=== PATIENT | female | born 1985 | race American Indian/Alaskan Native ===

== ENCOUNTER 2017-05-09 04:51 | Emergency (ER) | payer OTHER ==
[2017-05-09] MEDS ORDERED: KEPPRA 1,000 MG/NS 0.75% 100ML 1,000 MG/100 ML BAG IV ONE (06:04)
[2017-05-09 06:39] LABS: Basophils # (Auto) 0.1 K/mm3 (0.0-0.1); Eosinophils # (Auto) 0.4 K/mm3 (0.0-0.4); Eosinophils % (Auto) 4.6 % (0.0-4.3); Hematocrit 40.1 % (30.3-42.9); Hemoglobin 12.9 gm/dl (10.1-14.3); Lymphocytes # (Auto) 2.7 K/mm3 (1.2-5.4); Lymphocytes % (Auto) 28.6 % (13.4-35.0); Mean Corpuscular HGB Conc 32 % (30-34); Mean Corpuscular Hemoglobin 28 pg (28-32); Mean Corpuscular Volume 88 fl (79-97); Monocytes # (Auto) 0.6 K/mm3 (0.0-0.8); Monocytes % (Auto) 6.3 % (0.0-7.3); Platelet Count 341 K/mm3 (140-440); Red Blood Count 4.59 M/mm3 (3.65-5.03); Red Cell Distribution Width 13.2 % (13.2-15.2)
--- NOTE | 2017-05-09 06:55 | Emergency Department Report ---
HPI - General Chief Complaint: Seizure Time Seen by Provider: 05/09/17 06:48 - HPI HPI: This is a 31 year-old female who presents to the emergency department via EMS from home after her mother found her to be unresponsive and have some questionable seizure-like activity. The patient does have a history of a brain tumor for which she had surgery at [facility] 3 months ago and was just discharged last week. The patient is usually verbal and expressive but since the incident this morning, around 3:57 AM, the patient has been unresponsive and not following commands. Mom says that she was told the tumor was found to be cancerous and she was supposed to meet with a physician this morning regarding a possible subsequent chemotherapy or radiation. Mom says that the unresponsive episode happened after the patient had a coughing fit. ED Past Medical Hx - Past Medical History Previous Medical History?: Yes Hx of Cancer: Yes (Brain tumor) Hx Seizures: Yes Additional medical history: Brain tumor - Surgical History Past Surgical History?: Yes Additional Surgical History: Removal of Brain tumor - Social History Smoking Status: Never Smoker Substance Use Type: None - Medications Home Medications: Home Medications Medication Instructions Recorded Confirmed Last Taken Type Amantadine 100 mg FEEDTUBE BID 05/09/17 05/09/17 Unknown History Keppra ORAL LIQ 20 ml FEEDTUBE Q12H 05/09/17 05/09/17 Unknown History Propranolol 10 mg FEEDTUBE Q8H 05/09/17 05/09/17 Unknown History Sennosides 2 tab FEEDTUBE BID 05/09/17 05/09/17 Unknown History ED Review of Systems ROS: Stated complaint: COUGH Other details as noted in HPI Comment: Unobtainable due to pts medical conditions Respiratory: cough Cardiovascular: syncope Neurological: confusion Physical Exam - Physical Exam Vital Signs: Vital Signs 05/09/17 05/09/17 05/09/17 05:15 05:30 05:34 Temperature 96.9 F L Pulse Rate 64 70 64 Respiratory 16 17 16 Rate Blood Pressure 120/82 124/85 120/82 O2 Sat by Pulse 100 100 Oximetry 05/09/17 05/09/17 05:46 05:58 Temperature Pulse Rate 66 Respiratory 16 16 Rate Blood Pressure 124/85 O2 Sat by Pulse 100 100 Oximetry Physical Exam: GENERAL: Patient is ill-appearing. HENT: Normocephalic. Atraumatic. Patient has moist mucous membranes. EYES: Extraocular motions are intact. Pupils equal reactive to light bilaterally. NECK: Supple. Trachea is midline. Trach collar in place. CHEST/LUNGS: Clear to auscultation. There is no respiratory distress noted. HEART/CARDIOVASCULAR: Regular. There is no tachycardia. There is no murmur. ABDOMEN: Abdomen is soft, nontender. Patient has normal bowel sounds. There is no abdominal distention. SKIN: Skin is warm and dry. NEURO: Patient is very fatigued and responsive to painful stimuli but still is nonverbal and/or postictal. MUSCULOSKELETAL: There is no tenderness or deformity. There is no evidence of acute injury. ED Course Vital Signs 05/09/17 05/09/17 05/09/17 05:15 05:30 05:34 Temperature 96.9 F L Pulse Rate 64 70 64 Respiratory 16 17 16 Rate Blood Pressure 120/82 124/85 120/82 O2 Sat by Pulse 100 100 Oximetry 05/09/17 05/09/17 05:46 05:58 Temperature Pulse Rate 66 Respiratory 16 16 Rate Blood Pressure 124/85 O2 Sat by Pulse 100 100 Oximetry - Consultations Consultation #1: I spoke Dr Martinez, Neurosurgery at [facility], who listened to the case presentation and was able to look up previous CT scan results at [facility] and has accepted the patient for transfer to [facility] on [address]. However we have been waiting for a neuro floor or stepdown bed and we will continue to monitor the patient here in the emergency department at [facility] until we get a bed assigned. 05/09/17 14:59 ED Medical Decision Making - Lab Data Result diagrams: 05/09/17 06:00 05/09/17 06:00 - EKG Data -: EKG Interpreted by Me EKG shows normal: sinus rhythm, axis, intervals, QRS complexes, ST-T waves Rate: normal - EKG Data When compared to previous EKG there are: previous EKG unavailable Interpretation: normal EKG - Radiology Data Radiology results: report reviewed, image reviewed interpreted by me: Chest x-ray does not show any acute process. There are no pleural effusions, obvious pneumonia and there is no pneumothorax. CT HEAD WITHOUT CONTRAST: HISTORY: Seizure, brain tumor and surgery. TECHNIQUE: Sequential CT images without contrast. FINDINGS: There are no examinations for comparison at this facility. There is a complex, necrotic appearing mass or possibly surgical changes overlying the left thalamus, left posterior temporal lobe and extending into the left side of the posterior fossa. This area measures up to 5.7 x 5.0 cm in axial plane on image 23. This presumably represents a surgical site mentioned in the patient's clinical history. Residual tumor may be present. There is a tube which terminates within this complex area with the other end of the tube terminating in the frontal subdural space. This presumably represents a shunt of some sort. There is also a ventriculoperitoneal shunt present. There is moderate mass effect on the brainstem and left side of the cerebellum with effacement of the fourth ventricle. The left lateral ventricle is decompressed. The right lateral ventricle is slightly prominent. There is no evidence for acute hemorrhage or large area of acute ischemia. No subdural or subarachnoid fluid collection. 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 Craniotomy changes are noted in the right posterior frontal region. The visualized sinuses and mastoid air cells are well-aerated. IMPRESSION: There is a large masslike lesion or area of postoperative change or both with epicenter overlying the left posterior basal ganglia, left posterior temporal lobe and extends into the left side of the posterior fossa. Moderate mass effect secondary to this lesion. Please see above. No evidence for hemorrhage or large area of acute ischemia. If further evaluation is needed, MR brain with and without contrast should provide the most information. Transcribed By: TTR Dictated By: LUPE TINSLEY JR, MD Electronically Authenticated By: LUPE TINSLEY JR, MD Signed Date/Time: 05/09/17 0808 - Medical Decision Making The patient come here secondary to seizure like activity. She did have a second seizure in the emergency department that was mostly staring off into space but did not appear to show any tonic-clonic movements. CT of the head showed a brain mass and/or lesion and/or area of previous surgery that is consistent with her brain surgery at [facility], from which she was just discharged one week ago. As per the consultation section, I spoke with a neurosurgeon at [place] who agrees that the patient should be evaluated at [facility]. She was accepted there but we were waiting on a bed for her and it appears that she just recently was transported late last night/early this morning. She was seen in the emergency department throughout that entire time and monitored without any further seizure-like activity. She was covered with Keppra, which she takes regularly as well. She did show some improvement of her mental status prior to my leaving the hospital from my shift. Critical Care Time: No Critical care attestation.: If time is entered above; I have spent that time in minutes in the direct care of this critically ill patient, excluding procedure time. ED Disposition Clinical Impression: Seizures, History of brain tumor Altered mental status Qualifiers: Altered mental status type: unspecified Qualified Code(s): R41.82 - Altered mental status, unspecified Disposition: [id number]/TX-[id number] ANOTHER TYPE [facility] Is pt being admited?: No Condition: Fair Referrals: LORIE SANTILLAN MD [Primary Care Provider] - 3-5 Days
[2017-05-09 06:57] LABS: Alanine Aminotransferase 14 units/L (7-56); BUN/Creatinine Ratio 17; Blood Urea Nitrogen 10 mg/dL (7-17); Calcium 9.5 mg/dL (8.4-10.2); Hemolysis Index 10
--- NOTE | 2017-05-09 07:48 | XRay Report ---
AP CHEST: HISTORY: Cough No comparison. A tracheostomy and right IJ venous catheter are in good position. AP view of the chest demonstrates a normal mediastinal and cardiac contour with clear lungs and normal bony and soft tissue structures. IMPRESSION: Unremarkable AP chest.
--- NOTE | 2017-05-09 08:14 | Cat Scan Report ---
CT HEAD WITHOUT CONTRAST: HISTORY: Seizure, brain tumor and surgery. TECHNIQUE: Sequential CT images without contrast. FINDINGS: There are no examinations for comparison at this facility. There is a complex, necrotic appearing mass or possibly surgical changes overlying the left thalamus, left posterior temporal lobe and extending into the left side of the posterior fossa. This area measures up to 5.7 x 5.0 cm in axial plane on image 23. This presumably represents a surgical site mentioned in the patient's clinical history. Residual tumor may be present. There is a tube which terminates within this complex area with the other end of the tube terminating in the frontal subdural space. This presumably represents a shunt of some sort. There is also a ventriculoperitoneal shunt present. There is moderate mass effect on the brainstem and left side of the cerebellum with effacement of the fourth ventricle. The left lateral ventricle is decompressed. The right lateral ventricle is slightly prominent. There is no evidence for acute hemorrhage or large area of acute ischemia. No subdural or subarachnoid fluid collection. 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 Craniotomy changes are noted in the right posterior frontal region. The visualized sinuses and mastoid air cells are well-aerated. IMPRESSION: There is a large masslike lesion or area of postoperative change or both with epicenter overlying the left posterior basal ganglia, left posterior temporal lobe and extends into the left side of the posterior fossa. Moderate mass effect secondary to this lesion. Please see above. No evidence for hemorrhage or large area of acute ischemia. If further evaluation is needed, MR brain with and without contrast should provide the most information.
[2017-05-09] MEDS ORDERED: NACL 0.9% 1000 ML 1,000 ML ONE (11:07)
[2017-05-09] MEDS ORDERED: ATIVAN IV ONE (11:10)
[2017-05-09] MEDS ORDERED: NACL 0.9% 1000 ML 1,000 ML IV ONE ×2 (11:11→12:49)
[2017-05-09] MEDS ORDERED: VASELINE LIP THERAPY TP ONE (13:04)
[2017-05-09] MEDS ORDERED: KEPPRA FEEDTUBE ONE (15:18)
[2017-05-09] MEDS ORDERED: TYLENOL FEEDTUBE PRN (21:37)
[2017-05-10 06:38] VITALS: BP 114/71
== END 2017-05-10 06:38 | disposition other institution (70) ==
LOC: ED 04:51
DX: R41.82 Altered mental status, unspecified (principal); R56.9 Unspecified convulsions
CPT/HCPCS: 36415; 70450; 71045; 80053; 84443; 84484; 84703; 85025; 93005; 93010; 94760; 96361; 96374; 96375; 99285; J1953; J2060; J7030